=== PATIENT | male | born 1930 | race American Indian/Alaskan Native ===

== ENCOUNTER 2018-02-28 13:53 | Outpatient (CLI) | payer MEDICARE ==
--- NOTE | 2018-02-28 15:50 | XRay Report ---
XRAY LUMBAR SPINE THREE VIEWS: 02/28/18 13:53:00 CLINICAL: Chronic low back pain. FINDINGS: Mild upper lumbar levoscoliosis. Normal vertebral body height and alignment. Disc space narrowing at L5-S1 and pronounced facet joint sclerosis at L5-S1. Osteophytes at all levels. The pedicles are intact. No fracture. Aortic ectasia and calcification. Suspect a small fusiform abdominal aortic aneurysm. IMPRESSION: Scoliosis and moderate multilevel degenerative change. Pronounced facet joint arthropathy at L5-S1.
== END 2018-02-28 13:54 | disposition home or self-care (01) ==
LOC: SPVIMAG 13:53
PROVIDERS: ATTEND Nurse Practitioner
DX: M41.86 Other forms of scoliosis, lumbar region (principal); M48.07 Spinal stenosis, lumbosacral region; M12.88 Other specific arthropathies, not elsewhere classified, other specified site; G95.89 Other specified diseases of spinal cord; I77.819 Aortic ectasia, unspecified site
CPT/HCPCS: 72100